=== PATIENT | male | born 1945 | race Caucasian/White ===

== ENCOUNTER 2022-01-12 15:06 | Inpatient (IN) | payer MEDICARE ==
--- NOTE | 2022-01-12 15:46 | ED ---
General Adult HPI - General Chief complaint: Skin/Abscess/Foreign Body Stated complaint: Rash Time Seen by Provider: 01/12/22 15:20 Source: patient Mode of arrival: wheelchair Limitations: no limitations - History of Present Illness Initial comments: 76-year-old male with no reported past medical history presents to the ED for a rash. Patient states that the rash has been present for several years however he has never had it evaluated. He does not see a physician. Describes it as an itchy rash all of his extremities as well as his torso. Patient is concerned for a parasitic infection. He cleans the skin using hydrogen peroxide daily. Patient is additionally concerned about a open sore on the back of his left ankle that has been there for a period of time. No fevers. No other alleviating, precipitating or modifying factors. - Related Data Previous Rx's Medication Instructions Recorded Collagenase [Santyl Ointment] 1 applic TOPICAL DAILY 30 Days #45 01/15/22 gm Doxycycline [Vibramycin] 100 mg PO BID 7 Days #14 capsule 01/15/22 Menthol-Zinc Oxide Oint 1 applic TOPICAL BID PRN 30 Days 01/15/22 [Calmoseptine Ointment] #45 gm hydrOXYzine HCL [Atarax] 25 mg PO TID PRN 30 Days #60 tab 01/15/22 predniSONE 50 mg PO DAILY 10 Days #10 tab 01/15/22 Allergies Allergy/AdvReac Type Severity Reaction Status Date / Time No Known Allergies Allergy Verified 01/12/22 20:41 Review of Systems ROS Statement: Those systems with pertinent positive or pertinent negative responses have been documented in the HPI. ROS Other: All systems not noted in ROS Statement are negative. Past Medical History Additional Past Medical History / Comment(s): psoriasis History of Any Multi-Drug Resistant Organisms: None Reported Past Surgical History: No Surgical Hx Reported Past Psychological History: No Psychological Hx Reported Smoking Status: Former smoker Past Alcohol Use History: Daily Past Drug Use History: None Reported - Past Family History Mother Family Medical History: Hypertension General Exam Limitations: no limitations General appearance: alert, in no apparent distress Head exam: Present: atraumatic, normocephalic, normal inspection Eye exam: Present: normal appearance, PERRL, EOMI. Absent: scleral icterus, conjunctival injection, periorbital swelling ENT exam: Present: normal exam, mucous membranes moist Neck exam: Present: normal inspection. Absent: tenderness, meningismus, lymphadenopathy Respiratory exam: Present: normal lung sounds bilaterally. Absent: respiratory distress, wheezes, rales, rhonchi, stridor Cardiovascular Exam: Present: normal rhythm, tachycardia, normal heart sounds. Absent: systolic murmur, diastolic murmur, rubs, gallop, clicks GI/Abdominal exam: Present: soft, normal bowel sounds. Absent: distended, tenderness, guarding, rebound, rigid Extremities exam: Present: normal inspection, full ROM, normal capillary refill. Absent: tenderness, pedal edema, joint swelling, calf tenderness Back exam: Present: normal inspection Neurological exam: Present: alert, oriented X3, CN II-XII intact Psychiatric exam: Present: normal affect, normal mood Skin exam: Present: warm, rash (Profound rash involving all surfaces of the patient's skin. The skin is cracked, peeling. There is open wound on the posterior aspect of the left calf measuring 8x4 cm. skin is weeping with serosanguineous drainage) Course Vital Signs 01/12/22 01/12/22 01/12/22 15:22 20:26 20:32 Temperature 97.8 F 98.6 F Pulse Rate 116 H 116 H Pulse Rate [ 111 H Supine Pulse Oximetery] Respiratory 18 18 20 Rate Blood Pressure 121/68 154/85 O2 Sat by Pulse 96 98 Oximetry Medical Decision Making - Medical Decision Making Upon arrival the patient is placed into room 26. Laboratory studies are conducted which demonstrate a white count of 14.7. Lactic normal. X-ray of the left ankle is performed which demonstrates no acute fracture. Large wound along the posterior aspect of the ankle joint with adjacent soft tissue swelling. No obvious soft tissue gas. Results are discussed with the patient. He is given Unasyn and Vanco. Recommended admission for wound and infectious disease consult. Patient agreed and was admitted to the floor in stable condition. Admitting physician is Dr. Lam - Lab Data Result diagrams: 01/14/22 07:03 01/15/22 05:27 Disposition Clinical Impression: Cellulitis, Open wound of left ankle Disposition: ADMITTED IP TO THIS HOSP Condition: Stable Is patient prescribed a controlled substance at d/c from ED?: No Decision to Admit Reason: Admit from EC Decision Date: 01/12/22 Decision Time: 19:52
--- NOTE | 2022-01-12 16:15 | XR ---
EXAMINATION TYPE: XR ankle complete LT DATE OF EXAM: 01/12/2022 COMPARISON: None available INDICATION: Osteomyelitis TECHNIQUE: Standard 3 views of the left ankle FINDINGS: Diffuse osteopenia. No definite acute fracture line identified. Suspected large wound along the poste rior aspect of the ankle joint with adjacent soft tissue thickening. No obvious soft tissue gas. [place] gated soft tissue calcification is seen at the posterior aspect of the ankle joint. No obvious bone destruction or gross signs of osteomyelitis however early osteomyelitis cannot be exc luded. Further bone scan/gallium scan assessment can be considered if clinically required. Posterior calcaneal enthesophytosis at the insertion of the Achilles tendon. Preserved ankle mortise with a smooth talar dome. No sizable ankle joint effusion. Arterial atherosclerotic calcifications. IMPRESSION: As above.
[2022-01-12] MEDS ORDERED: NALOXONE 0.4 MG/ML 1 ML VIAL IV PRN (19:53)
[2022-01-12] MEDS ORDERED: ACETAMINOPHEN TAB 325 MG TAB PO PRN (19:54)
[2022-01-12] MEDS ORDERED: VANCOMYCIN IV PER PHARMACY 1 EACH MISC MISCELLANE PRN ×2 (19:55→20:28)
[2022-01-12] MEDS ORDERED: AMPICILLIN-SULBACTAM 3 GM in SODIUM CHLORIDE 0.9% 100 ML IVPB STA (19:55)
[2022-01-12] MEDS ORDERED: VANCOMYCIN 1,500 MG in SODIUM CHLORIDE 0.9% 250 ML IVPB ONE (20:30)
[2022-01-12] MEDS: SODIUM CHLORIDE 0.9% 1,000 ML IV SCH (21:05)
[2022-01-12 21:17] LABS: Basophils # (A) 0.1 k/uL (0-0.2); Basophils % (A) 1 %; Eosinophils # (A) 1.8 k/uL (0-0.7); Eosinophils % (A) 12 %; HCT 40.5 % (39.0-53.0); HGB 12.6 gm/dL (13.0-17.5); Lymphocytes # (A) 1.9 k/uL (1.0-4.8); Lymphocytes % (A) 13 %; MCH 31.9 pg (25.0-35.0); MCV 102.9 fL (80.0-100.0); Macrocytosis Slight; Mean Platelet Volume 7.5; Monocytes # (A) 0.7 k/uL (0-1.0); Monocytes % (A) 5 %; Neutrophils # (A) 9.8 k/uL (1.3-7.7); Neutrophils % (A) 67 %; Platelet Count 516 k/uL (150-450); RBC 3.94 m/uL (4.30-5.90); RDW 12.8 % (11.5-15.5); WBC 14.7 k/uL (3.8-10.6)
[2022-01-12 21:26] LABS: ALT 16 U/L (4-49); AST 25 U/L (17-59); African American GFR (CKD) >90 (>60 ml/min/1.73 sqM); Albumin 3.6 g/dL (3.5-5.0); Alkaline Phosphatase 109 U/L (38-126); Anion Gap 9 mmol/L; Blood Urea Nitrogen 12 mg/dL (9-20); Calcium 9.2 mg/dL (8.4-10.2); Carbon Dioxide 26 mmol/L (22-30); Chloride 106 mmol/L (98-107); Glucose 105 mg/dL (74-99); Non-African American GFR(CKD) 85 (>60 ml/min/1.73 sqM); Potassium 4.5 mmol/L (3.5-5.1); Sodium 141 mmol/L (137-145); Total Bilirubin 0.6 mg/dL (0.2-1.3); Total Protein 7.2 g/dL (6.3-8.2)
--- NOTE | 2022-01-13 01:37 | P.HPIM ---
History of Present Illness H&P Date: 01/12/22 Patient is 76-year-old male with no known PMH, who has not seen a physician for 20 years presents to the emergency room with complaints of diffuse rash. The patient reports that she has gradually developed this rash over the past several years, which is exquisitely pruritic. He reports that the rash has now extended to his entire body and he also has developed an ulcer on the back of his left le g. Reports developing weeping sores throughout with small amounts of blood. The patient does not take any medications. Denies experiencing chest discomfort, shortness of breath, fever, chills, cough. Denies nausea, vomiting, abdominal pain, diarrhea. Left ankle x-ray revealed osteopenia with multiple soft tissue abnormalities noted without obvious signs of osteomyelitis. Laboratory evaluation was remarkable for leukocytosis of 14.7, MCV 102, lactic acid 1.4. Review of systems: Pertinent positives and negatives as discussed in HPI, a complete review of systems was performed and all other systems are negative. Physical examination: General: non toxic, no distress, appears at stated age, normal weight Derm: Diffuse salmon-colored thickened skin with silver plaques and excoriations throughout the entire body, left leg posterior large ulcer 10 cm with dry gangrene noted, warm, dry Head: atraumatic, normocephalic, symmetric Eyes: EOMI, no lid lag, anicteric sclera, pupils equal round reactive to light ENT: Nose and ears atraumatic, no thrush, no pharyngeal erythema Neck: No thyromegaly, no cervical lymphadenopathy, trachea midline, supple Mouth: no lip lesion, mucus membranes moist Cardiovascular: S1S2 reg, no murmur, positive posterior tibial pulse bilateral, no edema, capillary refill less than 2 seconds Lungs: CTA bilateral, no rhonchi, no rales , no accessory muscle use Abdominal: soft, nontender to palpation, no guarding, no appreciable organomegaly, normal bowel sounds Ext: no gross muscle atrophy, muscle strength 5 out of 5 in all 4 extremities grossly, no contractures, Neuro: CN II-XI grossly intact, light touch intact all 4 extremities, finger to nose within normal limits, Psych: Alert, oriented, appropriate affect Assessment/plan Diffuse severe psoriasis -Patient will need systemic therapy (methotrexate versus Biologics)in light of extensive disease -Rheumatology consulted Sepsis secondary to left lower extremity ulcer -Continue with Unasyn and vancomycin -Wound care and ID consulted -Follow up blood cultures -IV fluids DVT prophylaxis -Heparin subcu The patient is admitted with an anticipated greater than 2 midnight stay for evaluation of psoriasis CODE STATUS: Full Code Discussed with: Patient Anticipated discharge date: 01/[address]: Home Past Medical History Additional Past Medical History / Comment(s): psoriasis History of Any Multi-Drug Resistant Organisms: None Reported Past Surgical History: No Surgical Hx Reported Past Anesthesia/Blood Transfusion Reactions: No Reported Reaction Past Psychological History: No Psychological Hx Reported Smoking Status: Former smoker Past Alcohol Use History: Daily Past Drug Use History: None Reported - Past Family History Mother Family Medical History: Hypertension Medications and Allergies Home Medications Medication Instructions Recorded Confirmed Type No Known Home Medications 01/12/22 01/12/22 History Allergies Allergy/AdvReac Type Severity Reaction Status Date / Time No Known Allergies Allergy Verified 01/12/22 20:41 Physical Exam Vitals: Vital Signs Temp Pulse Pulse Resp BP BP Pulse Ox 01/12/22 23:00 98.8 F 111 H 20 158/83 100 01/12/22 20:26 98.6 F 116 H 18 154/85 98 01/12/22 15:22 97.8 F 116 H 18 121/68 96 Intake and Output 01/12/22 01/12/22 01/13/22 14:59 22:59 06:59 Other: Weight 68.039 kg Results CBC & Chem 7: 01/12/22 20:55 01/12/22 20:55 Labs: Abnormal Lab Results - Last 24 Hours (Table) 01/12/22 01/12/22 Range/Units 20:55 20:55 WBC 14.7 H (3.8-10.6) k/uL RBC 3.94 L (4.30-5.90) m/uL Hgb 12.6 L (13.0-17.5) gm/dL MCV 102.9 H (80.0-100.0) fL Plt Count 516 H (150-450) k/uL Neutrophils # 9.8 H (1.3-7.7) k/uL Eosinophils # 1.8 H (0-0.7) k/uL Glucose 105 H (74-99) mg/dL Thrombosis Risk Factor Assmnt - Choose All That Apply Any of the Below Risk Factors Present?: Yes Other Risk Factors: Yes Each Risk Factor Represents 3 Points: Age 75 years or older Thrombosis Risk Factor Assessment Total Risk Factor Score: 3 Thrombosis Risk Factor Assessment Level: Moderate Risk
[2022-01-13] MEDS: HEPARIN SODIUM,PORCINE/PF 5,000 UNIT/0.5 ML SYRINGE SQ SCH ×3 (08:54→22:31)
[2022-01-13 09:04] LABS: Basophils # (A) 0.15 X 10*3/uL (0.00-0.10); Eosinophils # (A) 2.52 X 10*3/uL (0.04-0.35); Eosinophils % (A) 17.5 %; HCT 33.6 % (39.6-50.0); HGB 10.4 g/dL (13.0-17.0); Immature Grans, Automated 0.6 %; Lymphocytes # (A) 2.32 X 10*3/uL (0.90-5.00); Lymphocytes % (A) 16.1 %; MCH 31.7 pg (27.0-32.0); MCV 102.4 fL (80.0-97.0); Mean Platelet Volume 9.4 fL (9.5-12.2); Monocytes # (A) 1.29 X 10*3/uL (0.20-1.00); NRBC Per 100 WBC 0 /100 WBCS (0.0-0.0); Neutrophils # (A) 8.01 X 10*3/uL (1.80-7.70); Neutrophils % (A) 55.8 %; Platelet Count 389 X 10*3/uL (140-440); RBC 3.28 X 10*6/uL (4.40-5.60); RDW 12.7 % (11.5-14.5); WBC 14.37 X 10*3/uL (4.50-10.00)
[2022-01-13 09:16] LABS: ALT 13 U/L (10-49); AST 14 U/L (14-35); African American GFR (CKD) 104.8 (60.0-200.0); Albumin/Globulin Ratio 1.15 (1.60-3.17); Alkaline Phosphatase 84 U/L (41-126); BUN/Creat Ratio 14.57 Ratio (12.00-20.00); Blood Urea Nitrogen 10.2 mg/dL (9.0-27.0); Calcium 8.7 mg/dL (8.7-10.3); Carbon Dioxide 22.5 mmol/L (20.0-27.5); Chloride 108 mmol/L (96-109); Globulin 2.6 g/dL (1.6-3.3); Glucose 91 mg/dL (70-110); Non-African American GFR(CKD) 90.4 (60.0-200.0); Potassium 4.3 mmol/L (3.5-5.5); Sodium 142 mmol/L (135-145); Total Bilirubin <0.15 mg/dL (0.30-1.20); Total Protein 5.6 g/dL (6.2-8.2)
[2022-01-13] MEDS: VANCOMYCIN 1,250 MG in SODIUM CHLORIDE 0.9% 250 ML IVPB SCH ×2 (10:44→22:25)
[2022-01-13] MEDS: SODIUM CHLORIDE 0.9% 1,000 ML IV SCH ×2 (10:46→17:37)
--- NOTE | 2022-01-13 10:47 | P.CONS ---
History of Present Illness - Reason for Consult Consult date: 01/13/22 wound care - History of Present Illness This is a 76-year-old patient with no known past medical history. He has not seen a physician in over 20 years. Patient states that he has an ulceration to the left lower leg that has been there for quite a few months. He is not sure how it started. He did have a rash to bilateral lower extremities that was pruritic. At this time patient has a non-pressure ulceration to the left Achilles that measures approximately 10 x 3 x 0.5 cm eschar is present, with tendon exposure, no granulation seen within the wound bed. The periwound shows excoriation and plaque. X-ray revealed osteopenia with multiple soft tissues abnormalities noted without obvious signs of osteomyelitis. Review Of Systems: Constitutional: No fever, no chills, no night sweats. No weight change. No weakness, fatigue or lethargy. No daytime sleepiness. Integumentary:reports wounds, no lesions. No rash or pruritus. No unusual bruising. No change in hair or nails. Physical exam: General Appearance: Alert, cooperative, no distress, appears stated age. Skin: See HPI all other Skin color, texture, tugor normal, no rashes or lesions. Neurologic: Alert oriented x3 Assessment: 1. Nonhealing ulceration with muscle exposure 2. Dry gangrene Plan: 1. 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 Patient is willing come to the wound care center for treatment. At this time we will start the patient on Santyl, saline moistened gauze, dry gauze, rolled gauze and secure with paper tape change daily. Thank you for the consultation any questions contact the wound care center DNP note has been reviewed and discussed with Dr. Bhakta and the impression and plan of care has been directed as dictated. Past Medical History Additional Past Medical History / Comment(s): psoriasis History of Any Multi-Drug Resistant Organisms: None Reported Past Surgical History: No Surgical Hx Reported Past Anesthesia/Blood Transfusion Reactions: No Reported Reaction Past Psychological History: No Psychological Hx Reported Smoking Status: Former smoker Past Alcohol Use History: Daily Past Drug Use History: None Reported - Past Family History Mother Family Medical History: Hypertension Medications and Allergies Home Medications Medication Instructions Recorded Confirmed Type No Known Home Medications 01/12/22 01/12/22 History Allergies Allergy/AdvReac Type Severity Reaction Status Date / Time No Known Allergies Allergy Verified 01/12/22 20:41 Physical Exam Vitals: Vital Signs Temp Pulse Pulse Pulse Resp BP BP 01/13/22 08:00 95 111 H 01/13/22 05:11 98.7 F 95 20 01/12/22 23:00 98.8 F 111 H 20 158/83 01/12/22 20:32 111 H 20 01/12/22 20:26 98.6 F 116 H 18 154/85 01/12/22 15:22 97.8 F 116 H 18 121/68 BP Pulse Ox 01/13/22 08:00 01/13/22 05:11 116/61 100 01/12/22 23:00 100 01/12/22 20:32 01/12/22 20:26 98 01/12/22 15:22 96 Intake and Output 01/12/22 01/13/22 01/13/22 22:59 06:59 14:59 Intake Total 500 Balance 500 Intake: Oral 500 Other: Weight 68.039 kg Results CBC & Chem 7: 01/13/22 06:01 01/13/22 06:01 Labs: Abnormal Lab Results - Last 24 Hours (Table) 01/12/22 01/12/22 01/13/22 Range/Units 20:55 20:55 06:01 WBC 14.7 H 14.37 H (3.8-10.6) k/uL RBC 3.94 L 3.28 L (4.30-5.90) m/uL Hgb 12.6 L 10.4 L (13.0-17.5) gm/dL Hct 33.6 L (39.6-50.0) % MCV 102.9 H 102.4 H (80.0-100.0) fL MCHC 31.0 L (32.0-37.0) g/dL Plt Count 516 H (150-450) k/uL MPV 9.4 L (9.5-12.2) fL Immature Gran # 0.08 H (0.00-0.04) X 10*3/uL Neutrophils # 9.8 H 8.01 H (1.3-7.7) k/uL Monocytes # 1.29 H (0.20-1.00) X 10*3/uL Eosinophils # 1.8 H 2.52 H (0-0.7) k/uL Basophils # 0.15 H (0.00-0.10) X 10*3/uL Glucose 105 H (74-99) mg/dL Total Bilirubin (0.30-1.20) mg/dL Total Protein (6.2-8.2) g/dL Albumin (3.8-4.9) g/dL Albumin/Globulin Ratio (1.60-3.17) g/dL 01/13/22 Range/Units 06:01 WBC (3.8-10.6) k/uL RBC (4.30-5.90) m/uL Hgb (13.0-17.5) gm/dL Hct (39.6-50.0) % MCV (80.0-100.0) fL MCHC (32.0-37.0) g/dL Plt Count (150-450) k/uL MPV (9.5-12.2) fL Immature Gran # (0.00-0.04) X 10*3/uL Neutrophils # (1.3-7.7) k/uL Monocytes # (0.20-1.00) X 10*3/uL Eosinophils # (0-0.7) k/uL Basophils # (0.00-0.10) X 10*3/uL Glucose (74-99) mg/dL Total Bilirubin <0.15 L (0.30-1.20) mg/dL Total Protein 5.6 L (6.2-8.2) g/dL Albumin 3.0 L (3.8-4.9) g/dL Albumin/Globulin Ratio 1.15 L (1.60-3.17) g/dL Assessment and Plan (1) 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
[2022-01-13] MEDS: COLLAGENASE 250 UNIT/GM OINTMENT 30 GM TUBE TOPICAL SCH (10:56)
--- NOTE | 2022-01-13 12:23 | P.CONS ---
History of Present Illness - Reason for Consult Consult date: 01/13/22 Rash - History of Present Illness This is a hospital consult for a 76-year-old male seen in emergency room on 01/03 with a chief complaint of rash. Patient stated that rash has been present for several years with no formal evaluation. He also is concerned about a open sore on the back of his left ankle. He is not currently on any medication and has no known medical problems. Labs were drawn in the emergency room which showed a elevated white blood cell count of 14.7. X-ray left ankle showed no evidence of fracture. He received intravenous antibiotics and was admitted with infectious disease consulted. Rheumatology was consulted by attending physician due to diffuse pruritic rash, questionable psoriasis. Patient is continued on intravenous antibiotics for sepsis secondary to LLE ulcer. Blood cultures are pending. Wound consult notes Claudette Vogt 01/12/22: Patient complains of ulcer to left lower leg for few months. He has a non-pressure ulceration to the left Achilles that does have tendon exposed. The periwound shows excoriation and plaque. X-ray revealed osteopenia with multiple soft tissue abnormalities but no obvious signs of osteomyelitis. Patient would benefit from a surgical debridement however patient cannot stay much longer due to being the primary caregiver for his . He is willing to come to the wound care center for treatment. We will start the patient on Santyl, saline moistened gauze, dry gauze, rolled gauze, and secured with paper tape. Patient will change this daily. Chief complaint: Patient complains of itching all over. He states " it feels like something is crawling inside my skin like a worm or parasite." He states that he has had itchy rash for over 1 decade. He denies any previous medical condition, no mental illness, no drug use. He states he has never seen a doctor before and takes no medication. The only thing that makes his rash better is itching it. He also uses lotion at times but does not find this helpful. Exam: Flexion contracture left fifth PIP, Dupuytren's contracture left third flexor tendon, no obvious synovitis, diffuse erythematous flaking of skin with multiple excoriations, lung sounds CTA, heart sounds RRR, AOx4, good ROM I spoke with Dr. Jang regarding patient case and rash findings are inconsiste nt with psoriasis. We do feel patient will need a biopsy performed by dermatology for diagnosis of rash and do recommend a referral to dermatology promptly. There is also no evidence of inflammatory arthritis. Autoimmune- specific Lab work is not necessary at this point in time. If dermatology does find psoriasis then he can be seen by our office outpatient for treatment as needed. Review of Systems Constitutional: Denies as per HPI, Denies anorexia, Denies chills, Denies chronic headaches, Denies chronic pain, Denies daytime sleepiness, Denies fatigue, Denies fever, Denies lethargy, Denies malaise, Denies night sweats, Denies poor appetite, Denies sweats, Denies weakness, Denies weight gain, Denies weight loss Ears, nose, mouth and throat: Denies as per HPI, Denies ant. neck pain, Denies bleeding gums, Denies dental pain, Denies dysphagia, Denies epistaxis, Denies headache, Denies hoarseness, Denies mouth pain, Denies nasal congestion, Denies nasal discharge, Denies neck fullness/pressure, Denies neck lump, Denies nose pain, Denies odynophagia, Denies post-nasal drip, Denies sinus pain, Denies sinus pressure, Denies swelling in mouth, Denies swelling in throat, Denies sore throat, Denies vertigo, Denies voice changes Cardiovascular: Denies as per HPI, Denies chest pain, Denies claudication, Denies decreased exercise tolerance, Denies dyspnea on exertion, Denies edema, Denies high blood pressure, Denies irregular heart beat, Denies leg edema, Denies lightheadedness, Denies orthopnea, Denies palpitations, Denies paroxysmal nocturnal dyspnea, Denies phlebitis, Denies rapid heart beat, Denies shortness of breath, Denies syncope Respiratory: Denies as per HPI, Denies congestion, Denies cough, Denies cough with sputum, Denies dyspnea, Denies excessive sputum, Denies hemoptysis, Denies home oxygen, Denies pain, Denies pain on inspiration, Denies pleurisy, Denies respiratory infections, Denies sleep apnea, Denies snoring, Denies wheezing Gastrointestinal: Denies as per HPI, Denies abdominal pain, Denies belching, Den ies bloating, Denies BRBPR, Denies change in bowel habits, Denies coffee ground emesis, Denies constipation, Denies diarrhea, Denies dyspepsia, Denies early satiety, Denies excessive gas, Denies heartburn, Denies hematemesis, Denies hematochezia, Denies indigestion, Denies jaundice, Denies lactose intolerance, Denies loss of appetite, Denies melena, Denies nausea, Denies vomiting Musculoskeletal: Denies as per HPI, Denies arm numbness/tingling, Denies atrophy, Denies fractures, Denies frequent falls, Denies gait dysfunction, Denies hot joints, Denies leg numbness/tingling, Denies limitation of motion, Denies loss of height, Denies low back pain, Denies morning stiffness, Denies muscle cramps, Denies muscle weakness, Denies myalgias, Denies neck pain, Denies neck stiffness, Denies prior amputations, Denies redness of joints, Denies shooting arm pain, Denies shooting leg pain Integumentary: Reports pruritus, Reports rash, Reports sores Neurological: Denies as per HPI, Denies aphasia, Denies ataxia, Denies balance difficulties, Denies burning pain, Denies change in mentation, Denies change in smell/taste, Denies change in speech, Denies confusion, Denies convulsions, Denies double vision, Denies gait dysfunction, Denies head injury, Denies headaches, Denies hearing difficulties, Denies lack of coordination, Denies loss of vision, Denies memory loss, Denies migraines, Denies motor disturbance, Denies numbness, Denies paralysis, Denies paresthesias, Denies seizures, Denies sensory deficit, Denies spasticity, Denies syncope, Denies tic, Denies tingling, Denies transient paralysis, Denies tremors, Denies vertigo, Denies weakness, Denies visual changes Psychiatric: Denies as per HPI, Denies anhedonia, Denies anxiety, Denies anxiety attacks, Denies change in appetite, Denies change in libido, Denies change in sleep habits, Denies confusion, Denies depression, Denies difficulty concentrating, Denies disorientation, Denies hallucinations, Denies hopelessness, Denies hypersomnia, Denies insomnia, Denies irritability, Denies memory loss, Denies mood swings, Denies paranoia, Denies sadness/tearfulness, Denies sleep disturbances, Denies suicidal ideation Endocrine: Denies as per HPI, Denies cold intolerance, Denies deepening of the voice, Denies excessive sweating, Denies excessive thirst, Denies fatigue, Denies flushing, Denies heat intolerance, Denies high blood sugars, Denies increase in ring/shoe/hat size, Denies low blood sugars, Denies nocturia, Denies palpitations, Denies polydipsia, Denies polyphagia, Denies polyuria, Denies proptosis, Denies recent glucocorticoid use, Denies thyroid mass, Denies weight change Allergic/Immunologic: Denies as per HPI, Denies allergic rhinitis, Denies anaphylaxis, Denies angioedema, Denies gluten intolerance, Denies persistent infections, Denies seasonal allergies, Denies urticaria, Denies wheezing Past Medical History Past Medical History: No Reported History Additional Past Medical History / Comment(s): psoriasis History of Any Multi-Drug Resistant Organisms: None Reported Past Surgical History: No Surgical Hx Reported Past Anesthesia/Blood Transfusion Reactions: No Reported Reaction Past Psychological History: No Psychological Hx Reported Smoking Status: Former smoker Past Alcohol Use History: Daily Past Drug Use History: None Reported - Past Family History Mother Family Medical History: Hypertension Medications and Allergies Home Medications Medication Instructions Recorded Confirmed Type No Known Home Medications 01/12/22 01/12/22 History Allergies Allergy/AdvReac Type Severity Reaction Status Date / Time No Known Allergies Allergy Verified 01/12/22 20:41 Physical Exam Vitals: Vital Signs Temp Pulse Pulse Pulse Resp BP BP 01/13/22 08:00 95 111 H 01/13/22 05:11 98.7 F 95 20 01/12/22 23:00 98.8 F 111 H 20 158/83 01/12/22 20:32 111 H 20 01/12/22 20:26 98.6 F 116 H 18 154/85 01/12/22 15:22 97.8 F 116 H 18 121/68 BP Pulse Ox 01/13/22 08:00 01/13/22 05:11 116/61 100 01/12/22 23:00 100 01/12/22 20:32 01/12/22 20:26 98 01/12/22 15:22 96 Intake and Output 05/10/22 05/11/22 05/11/22 22:59 06:59 14:59 Intake Total 500 Balance 500 Intake: Oral 500 Other: Weight 68.039 kg - Constitutional General appearance: average body habitus, cooperative - EENT Eyes: PERRLA ENT: hearing grossly normal - Neck Neck: normal ROM - Respiratory Respiratory: bilateral: CTA - Cardiovascular Rhythm: regular Heart sounds: normal: S1, S2 - Gastrointestinal General gastrointestinal: normal bowel sounds - Integumentary Integumentary: rash - Neurologic Neurologic: CNII-XII intact - Musculoskeletal Musculoskeletal: gait normal - Psychiatric Psychiatric: A&O x's 3 Results CBC & Chem 7: 01/13/22 06:01 01/13/22 06:01 Labs: Abnormal Lab Results - Last 24 Hours (Table) 01/12/22 01/12/22 01/13/22 Range/Units 20:55 20:55 06:01 WBC 14.7 H 14.37 H (3.8-10.6) k/uL RBC 3.94 L 3.28 L (4.30-5.90) m/uL Hgb 12.6 L 10.4 L (13.0-17.5) gm/dL Hct 33.6 L (39.6-50.0) % MCV 102.9 H 102.4 H (80.0-100.0) fL MCHC 31.0 L (32.0-37.0) g/dL Plt Count 516 H (150-450) k/uL MPV 9.4 L (9.5-12.2) fL Immature Gran # 0.08 H (0.00-0.04) X 10*3/uL Neutrophils # 9.8 H 8.01 H (1.3-7.7) k/uL Monocytes # 1.29 H (0.20-1.00) X 10*3/uL Eosinophils # 1.8 H 2.52 H (0-0.7) k/uL Basophils # 0.15 H (0.00-0.10) X 10*3/uL Glucose 105 H (74-99) mg/dL Total Bilirubin (0.30-1.20) mg/dL Total Protein (6.2-8.2) g/dL Albumin (3.8-4.9) g/dL Albumin/Globulin Ratio (1.60-3.17) g/dL 01/13/22 Range/Units 06:01 WBC (3.8-10.6) k/uL RBC (4.30-5.90) m/uL Hgb (13.0-17.5) gm/dL Hct (39.6-50.0) % MCV (80.0-100.0) fL MCHC (32.0-37.0) g/dL Plt Count (150-450) k/uL MPV (9.5-12.2) fL Immature Gran # (0.00-0.04) X 10*3/uL Neutrophils # (1.3-7.7) k/uL Monocytes # (0.20-1.00) X 10*3/uL Eosinophils # (0-0.7) k/uL Basophils # (0.00-0.10) X 10*3/uL Glucose (74-99) mg/dL Total Bilirubin <0.15 L (0.30-1.20) mg/dL Total Protein 5.6 L (6.2-8.2) g/dL Albumin 3.0 L (3.8-4.9) g/dL Albumin/Globulin Ratio 1.15 L (1.60-3.17) g/dL
[2022-01-13] MEDS ORDERED: diphenhydrAMINE 50 MG/ML 1 ML VIAL IVP PRN (14:51)
--- NOTE | 2022-01-13 15:00 | P.PN ---
Subjective Progress Note Date: 01/13/22 Hospital Course: Patient is 76-year-old male with no known PMH, who has not seen a physician for 20 years presents to the emergency room with complaints of diffuse rash. The patient reported he had gradually developed this rash over the past several years, approximately 10 years which is describes as being extremely pruritic. He reports that the rash has now extended to his entire body and he also has developed an ulcer on the back of his left leg. Reports that he scratches so much he has been developing weeping sores throughout with small amounts of blo od. The patient does not take any medications at home and reports he has his 's primary caregiver. Left ankle x-ray revealed osteopenia with multiple soft tissue abnormalities noted without obvious signs of osteomyelitis. Laboratory evaluation was remarkable for leukocytosis of 14.7, MCV 102, lactic acid 1.4. Patient was admitted under our services for diffuse severe psoriasis along with sepsis secondary to left lower extremity ulcer. He was started on IV antibiotics vancomycin and Rocephin and consultations were placed to rheumatology, infectious disease, and wound care. Physical examination: Patient was seen and fully evaluated at the bedside this morning. Patient reports significant itching that is uncontrolled at this time. Order placed for when necessary Benadryl. Patient remains on IV antibiotics with vancomycin and Unasyn at this time. Awaiting infectious disease and rheumatology recommendations. Ulceration left lower extremity distal posterior region is currently open to air with no drainage noted. General: non toxic, no distress, appears at stated age, normal weight thin build Derm: Diffuse excoriated salmon-colored thickened skin with silver plaques throughout the entire body, left leg posterior large ulcer 10 cm with dry gangrene noted and tendon exposure, warm, dry Head: atraumatic, normocephalic, symmetric Eyes: EOMI, no lid lag, anicteric sclera, pupils equal round reactive to light ENT: Nose and ears atraumatic, no thrush, no pharyngeal erythema Neck: No thyromegaly, no cervical lymphadenopathy, trachea midline, supple Mouth: no lip lesion, mucus membranes moist Cardiovascular: S1S2 reg, no murmur, positive posterior tibial pulse bilateral, no edema, capillary refill less than 2 seconds Lungs: CTA bilateral, no rhonchi, no rales , no accessory muscle use Abdominal: soft, nontender to palpation, no guarding, no appreciable organomegaly, normal bowel sounds Ext: no gross muscle atrophy, muscle strength 5 out of 5 in all 4 extremities grossly, no contractures, Neuro: CN II-XI grossly intact, light touch intact all 4 extremities, finger to nose within normal limits, Psych: Alert, oriented, appropriate affect Assessment and plan of care: Diffuse severe rash, appears consistent with severe case of psoriasis with excoriated salmon-colored thickened skin with silver plaques -Patient will likely need systemic therapy (methotrexate versus Biologics) in light of extensive disease -Rheumatology consulted -Benadryl to be administered as needed for severe uncontrolled itching Sepsis secondary to left lower extremity ulcer -Continue with Unasyn and vancomycin -Wound care and ID consulted -Follow up blood cultures -IV fluids CODE STATUS: Full Code DVT prophylaxis: Heparin Discussed with: Patient and RN Anticipated discharge date: Clinical course to determine Anticipated discharge place: Home with home care I reviewed the documentation as provided by the ALEXANDRE above, who is the original author of this note. I agree with the documented assessment and plan, with the following changes: none Objective - Vital Signs Vital signs: Vital Signs Temp 98.7 F 01/13/22 05:11 Pulse 95 01/13/22 05:11 Resp 20 01/13/22 05:11 BP 116/61 01/13/22 05:11 Pulse Ox 100 01/13/22 05:11 Intake & Output 01/12/22 01/13/22 01/13/22 18:59 06:59 18:59 Intake Total 500 Balance 500 Weight 68.039 kg Intake: Oral 500 - Labs CBC & Chem 7: 01/13/22 06:01 01/13/22 06:01 Labs: Abnormal Lab Results - Last 24 Hours (Table) 01/12/22 01/12/22 Range/Units 20:55 20:55 WBC 14.7 H (3.8-10.6) k/uL RBC 3.94 L (4.30-5.90) m/uL Hgb 12.6 L (13.0-17.5) gm/dL MCV 102.9 H (80.0-100.0) fL Plt Count 516 H (150-450) k/uL Neutrophils # 9.8 H (1.3-7.7) k/uL Eosinophils # 1.8 H (0-0.7) k/uL Glucose 105 H (74-99) mg/dL
--- NOTE | 2022-01-13 21:32 | P.CONS ---
History of Present Illness - Reason for Consult Consult date: 01/13/22 Bilateral lower extremity cellulitis Requesting physician: Evy Siddiqui - Chief Complaint Generalized itching and rash x months - History of Present Illness Patient is a 76-year-old male presenting to the hospital for evaluation of extensive rash which apparently the patient has for more than 10 years however mention has been getting worse over the last few months patient is not on any medications and has not seek any treatment for it until yesterday afternoon patient complaining of rash to upper and lower extremities mostly generalized with itching and some burning pain patient also have a necrotic open wound to the left posterior calcaneus area which apparently has been going on for couple of weeks to months patient denies having history of any trauma and mention it has opened up spontaneously head the patient has been the cleaning it with hydrogen peroxide, on presentation to the hospital patient was afebrile and no fever have recorded subsequently patient vital 14.7 with a left shift creatinine was normal liver enzymes are normal patient did have x-rays of the ankle did not show any bony changes, the patient has been started on vancomycin was admitted to the hospital infectious disease was consulted for further management Review of Systems Positive point has been mentioned in the HPI rest of the systems are negative Past Medical History Additional Past Medical History / Comment(s): psoriasis History of Any Multi-Drug Resistant Organisms: None Reported Past Surgical History: No Surgical Hx Reported Past Anesthesia/Blood Transfusion Reactions: No Reported Reaction Past Psychological History: No Psychological Hx Reported Smoking Status: Former smoker Past Alcohol Use History: Daily Past Drug Use History: None Reported - Past Family History Mother Family Medical History: Hypertension Medications and Allergies Home Medications Medication Instructions Recorded Confirmed Type Collagenase [Santyl Ointment] 1 applic TOPICAL DAILY 30 Days #45 01/15/22 Rx gm Doxycycline [Vibramycin] 100 mg PO BID 7 Days #14 capsule 01/15/22 Rx Menthol-Zinc Oxide Oint 1 applic TOPICAL BID PRN 30 Days 01/15/22 Rx [Calmoseptine Ointment] #45 gm hydrOXYzine HCL [Atarax] 25 mg PO TID PRN 30 Days #60 tab 01/15/22 Rx predniSONE 50 mg PO DAILY 10 Days #10 tab 01/15/22 Rx Allergies Allergy/AdvReac Type Severity Reaction Status Date / Time No Known Allergies Allergy Verified 01/12/22 20:41 Physical Exam Vitals: Vital Signs Temp Pulse Pulse Pulse Resp BP BP 01/13/22 08:00 95 111 H 01/13/22 05:11 98.7 F 95 20 01/12/22 23:00 98.8 F 111 H 20 158/83 01/12/22 20:32 111 H 20 01/12/22 20:26 98.6 F 116 H 18 154/85 01/12/22 15:22 97.8 F 116 H 18 121/68 BP Pulse Ox 01/13/22 08:00 01/13/22 05:11 116/61 100 01/12/22 23:00 100 01/12/22 20:32 01/12/22 20:26 98 01/12/22 15:22 96 Intake and Output 01/12/22 01/13/22 01/13/22 22:59 06:59 14:59 Intake Total 500 Balance 500 Intake: Oral 500 Other: Weight 68.039 kg GENERAL DESCRIPTION: Elderly male lying in bed, no distress. No tachypnea or accessory muscle of respiration use. HEENT: Shows Pallor , no scleral icterus. Oral mucous membrane is dry. No pharyngeal erythema or thrush NECK: Trachea central, no thyromegaly. LUNGS: Unlabored breathing. Clear to auscultation anteriorly. No wheeze or crackle. HEART: S1, S2, regular rate and rhythm. No loud murmur ABDOMEN: Soft, no tenderness , guarding or rigidity, no organomegaly EXTREMITIES: No edema of feet. SKIN: Generalized dry scaly rash, with necrotic wound to the left ankle area no surrounding redness or any drainage NEUROLOGICAL: The patient is awake, alert, oriented x3, mood and affect normal. Results CBC & Chem 7: 01/14/22 07:03 01/15/22 05:27 Labs: Abnormal Lab Results - Last 24 Hours (Table) 01/12/22 01/12/22 01/13/22 Range/Units 20:55 20:55 06:01 WBC 14.7 H 14.37 H (3.8-10.6) k/uL RBC 3.94 L 3.28 L (4.30-5.90) m/uL Hgb 12.6 L 10.4 L (13.0-17.5) gm/dL Hct 33.6 L (39.6-50.0) % MCV 102.9 H 102.4 H (80.0-100.0) fL MCHC 31.0 L (32.0-37.0) g/dL Plt Count 516 H (150-450) k/uL MPV 9.4 L (9.5-12.2) fL Immature Gran # 0.08 H (0.00-0.04) X 10*3/uL Neutrophils # 9.8 H 8.01 H (1.3-7.7) k/uL Monocytes # 1.29 H (0.20-1.00) X 10*3/uL Eosinophils # 1.8 H 2.52 H (0-0.7) k/uL Basophils # 0.15 H (0.00-0.10) X 10*3/uL Glucose 105 H (74-99) mg/dL Total Bilirubin (0.30-1.20) mg/dL Total Protein (6.2-8.2) g/dL Albumin (3.8-4.9) g/dL Albumin/Globulin Ratio (1.60-3.17) g/dL /07/27 Range/Units 06:01 WBC (3.8-10.6) k/uL RBC (4.30-5.90) m/uL Hgb (13.0-17.5) gm/dL Hct (39.6-50.0) % MCV (80.0-100.0) fL MCHC (32.0-37.0) g/dL Plt Count (150-450) k/uL MPV (9.5-12.2) fL Immature Gran # (0.00-0.04) X 10*3/uL Neutrophils # (1.3-7.7) k/uL Monocytes # (0.20-1.00) X 10*3/uL Eosinophils # (0-0.7) k/uL Basophils # (0.00-0.10) X 10*3/uL Glucose (74-99) mg/dL Total Bilirubin <0.15 L (0.30-1.20) mg/dL Total Protein 5.6 L (6.2-8.2) g/dL Albumin 3.0 L (3.8-4.9) g/dL Albumin/Globulin Ratio 1.15 L (1.60-3.17) g/dL Assessment and Plan (1) Rash Status: Acute Code(s): R21 - RASH AND OTHER NONSPECIFIC SKIN ERUPTION SNOMED Code(s): 302587089 Plan: 1patient with generalized rash pruritic with a question of primary skin condition or rheumatological disorder patient benefit from skin biopsy and r heumatological work-up to rule out etiology and appropriate treatment clinically not behaving as a cellulitis with generalized and itchy rash. 2patient with a nonhealing wound to the left posterior ankle area with a tendo calcaneum exposed which seem to be necrotic patient will benefit from vascular surgery evaluation this was discussed with the admitting team. 3May continue with empiric vancomycin while waiting for the work-up to be completed. We will follow on clinical condition and cultures to further adjust medication if needed Thank you for this consultation will follow this patient along with you Time with Patient: Greater than 30
[2022-01-14] MEDS ORDERED: diphenhydrAMINE 25 MG CAP PO ONE (00:45)
[2022-01-14] MEDS: SODIUM CHLORIDE 0.9% 1,000 ML IV SCH ×3 (07:39→16:13)
[2022-01-14 07:57] LABS: ALT 13 U/L (4-49); AST 21 U/L (17-59); African American GFR (CKD) >90 (>60 ml/min/1.73 sqM); Albumin 2.7 g/dL (3.5-5.0); Alkaline Phosphatase 82 U/L (38-126); Anion Gap 5 mmol/L; Blood Urea Nitrogen 8 mg/dL (9-20); Calcium 8.3 mg/dL (8.4-10.2); Carbon Dioxide 25 mmol/L (22-30); Chloride 109 mmol/L (98-107); Globulin 2.8 g/dL; Glucose 87 mg/dL (74-99); Non-African American GFR(CKD) 89 (>60 ml/min/1.73 sqM); Potassium 3.9 mmol/L (3.5-5.1); Sodium 139 mmol/L (137-145); Total Bilirubin 0.4 mg/dL (0.2-1.3); Total Protein 5.5 g/dL (6.3-8.2)
[2022-01-14 08:24] LABS: C Reactive Protein 4.6 mg/dL (<1.0)
[2022-01-14 09:17] LABS: Basophils # (A) 0.12 X 10*3/uL (0.00-0.10); Eosinophils # (A) 2.38 X 10*3/uL (0.04-0.35); Eosinophils % (A) 19.1 %; HCT 32.9 % (39.6-50.0); HGB 10.1 g/dL (13.0-17.0); Immature Grans, Automated 0.3 %; Lymphocytes # (A) 2.26 X 10*3/uL (0.90-5.00); Lymphocytes % (A) 18.1 %; MCH 31.1 pg (27.0-32.0); MCHC 30.7 g/dL (32.0-37.0); MCV 101.2 fL (80.0-97.0); Mean Platelet Volume 9.5 fL (9.5-12.2); Monocytes # (A) 1.05 X 10*3/uL (0.20-1.00); Monocytes % (A) 8.4 %; NRBC Per 100 WBC 0 /100 WBCS (0.0-0.0); Neutrophils # (A) 6.62 X 10*3/uL (1.80-7.70); Neutrophils % (A) 53.1 %; Platelet Count 390 X 10*3/uL (140-440); RBC 3.25 X 10*6/uL (4.40-5.60); RDW 12.5 % (11.5-14.5); WBC 12.47 X 10*3/uL (4.50-10.00)
[2022-01-14] MEDS: HEPARIN SODIUM,PORCINE/PF 5,000 UNIT/0.5 ML SYRINGE SQ SCH ×2 (09:45→16:13)
[2022-01-14] MEDS: VANCOMYCIN 1,250 MG in SODIUM CHLORIDE 0.9% 250 ML IVPB SCH ×2 (09:45→19:41)
[2022-01-14] MEDS: COLLAGENASE 250 UNIT/GM OINTMENT 30 GM TUBE TOPICAL SCH (09:54)
--- NOTE | 2022-01-14 09:55 | P.GSCN ---
History of Present Illness Consult date: 01/14/22 Reason for Consult: Nonhealing lower extremity wound Requesting physician: Leonid Wilson History of present illness: This is a 76-year-old male who presented to the emergency department 3 days ago with complaints of a pruritic rash and nonhealing wound to the left lower extremity. Patient has no known past medical history. He has not seen a physician in over 20 years. He states he's had pruritic rash which is all over his body for several years. Left lower extremity wound for several months. Again he has not seen any doctors for these complaints. Review of Systems A 14 point review systems was completed all pertinent positives and negatives as stated in the HPI. Past Medical History Past Medical History: No Reported History Additional Past Medical History / Comment(s): psoriasis History of Any Multi-Drug Resistant Organisms: None Reported Past Surgical History: No Surgical Hx Reported Past Anesthesia/Blood Transfusion Reactions: No Reported Reaction Past Psychological History: No Psychological Hx Reported Smoking Status: Former smoker Past Alcohol Use History: Daily Past Drug Use History: None Reported - Past Family History Mother Family Medical History: Hypertension Medications and Allergies Home Medications Medication Instructions Recorded Confirmed Type No Known Home Medications 01/12/22 01/12/22 History Allergies Allergy/AdvReac Type Severity Reaction Status Date / Time No Known Allergies Allergy Verified 01/12/22 20:41 Surgical - Exam Vital Signs Temp Pulse Resp BP Pulse Ox 97.8 F 116 H 18 121/68 96 01/12/22 15:22 01/12/22 15:22 01/12/22 15:22 01/12/22 15:22 01/12/22 15:22 General appearance: The patient is alert, oriented, appears in no acute distress. HET: Head is normocephalic and atraumatic. Pupils are equal and reactive. Neck: Supple without lymphadenopathy. Trachea midline. No audible carotid bruit. Heart: S1 S2. Regular rate and rhythm. Lungs: Clear to auscultation bilaterally. Abdomen: Soft, nontender, nondistended. Skin: Pruritic rash on bilateral upper and lower extremities and abdomen. Upper and lower extremities with leathery, dry, flaky skin. Extremities: Bilateral lower extremities with scaly A skin that is flaking. He has palpable bilateral femoral and popliteal pulses. Good capillary refill. Left lower extremity wound over the Achilles with eschar and tendon exposure. Bilateral posterior tibialis and dorsalis pedis Doppler signals. Neurological: No focal deficits. Strength and sensation are grossly intact. Results - Labs 01/14/22 07:03 01/14/22 07:03 Abnormal Lab Results - Last 24 Hours (Table) 01/13/22 01/13/22 Range/Units 06:01 06:01 WBC 14.37 H (4.50-10.00) X 10*3/uL RBC 3.28 L (4.40-5.60) X 10*6/uL Hgb 10.4 L (13.0-17.0) g/dL Hct 33.6 L (39.6-50.0) % MCV 102.4 H (80.0-97.0) fL MCHC 31.0 L (32.0-37.0) g/dL MPV 9.4 L (9.5-12.2) fL Immature Gran # 0.08 H (0.00-0.04) X 10*3/uL Neutrophils # 8.01 H (1.80-7.70) X 10*3/uL Monocytes # 1.29 H (0.20-1.00) X 10*3/uL Eosinophils # 2.52 H (0.04-0.35) X 10*3/uL Basophils # 0.15 H (0.00-0.10) X 10*3/uL Total Bilirubin <0.15 L (0.30-1.20) mg/dL Total Protein 5.6 L (6.2-8.2) g/dL Albumin 3.0 L (3.8-4.9) g/dL Albumin/Globulin Ratio 1.15 L (1.60-3.17) g/dL Microbiology - Last 24 Hours (Table) 01/12/22 21:00 Blood Culture - Preliminary Blood No Growth after 24 hours 01/12/22 20:45 Blood Culture - Preliminary Blood No Growth after 24 hours Diabetes panel 01/13/22 Range/Units 06:01 Sodium 142 (135-145) mmol/L Potassium 4.3 (3.5-5.5) mmol/L Chloride 108 (96-109) mmol/L Carbon Dioxide 22.5 (20.0-27.5) mmol/L BUN 10.2 (9.0-27.0) mg/dL Creatinine 0.7 (0.6-1.5) mg/dL Glucose 91 (70-110) mg/dL Calcium 8.7 (8.7-10.3) mg/dL AST 14 (14-35) U/L ALT 13 (10-49) U/L Alkaline Phosphatase 84 (41-126) U/L Total Protein 5.6 L (6.2-8.2) g/dL Albumin 3.0 L (3.8-4.9) g/dL Calcium panel 01/13/22 Range/Units 06:01 Calcium 8.7 (8.7-10.3) mg/dL Albumin 3.0 L (3.8-4.9) g/dL Pituitary panel 01/13/22 Range/Units 06:01 Sodium 142 (135-145) mmol/L Potassium 4.3 (3.5-5.5) mmol/L Chloride 108 (96-109) mmol/L Carbon Dioxide 22.5 (20.0-27.5) mmol/L BUN 10.2 (9.0-27.0) mg/dL Creatinine 0.7 (0.6-1.5) mg/dL Glucose 91 (70-110) mg/dL Calcium 8.7 (8.7-10.3) mg/dL Adrenal panel 01/13/22 Range/Units 06:01 Sodium 142 (135-145) mmol/L Potassium 4.3 (3.5-5.5) mmol/L Chloride 108 (96-109) mmol/L Carbon Dioxide 22.5 (20.0-27.5) mmol/L BUN 10.2 (9.0-27.0) mg/dL Creatinine 0.7 (0.6-1.5) mg/dL Glucose 91 (70-110) mg/dL Calcium 8.7 (8.7-10.3) mg/dL Total Bilirubin <0.15 L (0.30-1.20) mg/dL AST 14 (14-35) U/L ALT 13 (10-49) U/L Alkaline Phosphatase 84 (41-126) U/L Total Protein 5.6 L (6.2-8.2) g/dL Albumin 3.0 L (3.8-4.9) g/dL - Imaging Comments: Left Ankle x-ray reports diffuse osteopenia, no definite acute fracture line identified. Suspect large wound along posterior aspect of ankle joint with adjacent soft tissue thickening. No obvious soft tissue gas. No obvious bone destruction or gross signs of osteomyelitis Assessment and Plan Assessment: 1. Left lower extremity nonhealing nonhealing wound 2. 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 It was discussed with him that we recommend lower extremity arterial Doppler and CT abdomen and pelvis with runoff of lower extremities however this can be done as an outpatient. Agree with local wound care. Patient may benefit as well from formal debridement, however again this is not urgent. Outpatient follow-up for a pruritic rash with dermatology. Thank you for this consultation, we will continue to follow. The impression and plan of care has been dictated as directed. Dr. Reis I performed a history and examination of this patient, discussed the same with the dictator. I agree with the dictator's note ,documented as a scribe. Any additional findings or plans will be noted.
[2022-01-14 12:03] LABS: Erythrocyte Sedimentation Rate 38 mm/Hr (0-20)
[2022-01-14] MEDS ORDERED: MENTHOL-ZINC OXIDE OINT 113 GM TUBE TOPICAL PRN (14:53)
--- NOTE | 2022-01-14 16:18 | P.PN ---
Subjective Progress Note Date: 01/14/22 Hospital Course: Patient is 76-year-old male with no known PMH, who has not seen a physician for 20 years presents to the emergency room with complaints of diffuse rash. The patient reported he had gradually developed this rash over the past several years, approximately 10 years which is describes as being extremely pruritic. He reports that the rash has now extended to his entire body and he also has developed an ulcer on the back of his left leg. Reports that he scratches so much he has been developing weeping sores throughout with small amounts of blo od. The patient does not take any medications at home and reports he has his 's primary caregiver. Left ankle x-ray revealed osteopenia with multiple soft tissue abnormalities noted without obvious signs of osteomyelitis. Laboratory evaluation was remarkable for leukocytosis of 14.7, MCV 102, lactic acid 1.4. Patient was admitted under our services for diffuse severe psoriasis along with sepsis secondary to left lower extremity ulcer. He was started on IV antibiotics vancomycin and Rocephin and consultations were placed to rheumatology, infectious disease, and wound care. Physical examination: Patient was seen and fully evaluated at the bedside this morning. Patient reports his itching remains uncontrolled but otherwise denies having any complaints or concerns at this time. Patient to be seen by vascular surgery and dermatology as recommended by infectious disease. At this time we will continue with IV antibiotic vancomycin. Vascular surgery completing CTA abdomen and aorta with runoff and bilateral lower extremity arterial Dopplers. General: non toxic, no distress, appears at stated age, normal weight thin build Derm: Diffuse excoriated salmon-colored thickened skin with silver plaques throughout the entire body, left leg posterior large ulcer 10 cm with dry gangrene noted and tendon exposure, warm, dry Head: atraumatic, normocephalic, symmetric Eyes: EOMI, no lid lag, anicteric sclera, pupils equal round reactive to light ENT: Nose and ears atraumatic, no thrush, no pharyngeal erythema Neck: No thyromegaly, no cervical lymphadenopathy, trachea midline, supple Mouth: no lip lesion, mucus membranes moist Cardiovascular: S1S2 reg, no murmur, positive posterior tibial pulse bilateral, no edema, capillary refill less than 2 seconds Lungs: CTA bilateral, no rhonchi, no rales , no accessory muscle use Abdominal: soft, nontender to palpation, no guarding, no appreciable organomegaly, normal bowel sounds Ext: no gross muscle atrophy, muscle strength 5 out of 5 in all 4 extremities grossly, no contractures, Neuro: CN II-XI grossly intact, light touch intact all 4 extremities, finger to nose within normal limits, Psych: Alert, oriented, appropriate affect Assessment and plan of care: Diffuse severe rash, appears consistent with severe case of psoriasis with exc oriated salmon-colored thickened skin with silver plaques -Patient will likely need systemic therapy (methotrexate versus Biologics) in light of extensive disease -Rheumatology consulted -Benadryl to be administered as needed for severe uncontrolled itching Sepsis secondary to left lower extremity ulcer -Continue with IV antibiotic: vancomycin -Wound care following -Infectious disease following -Follow up blood cultures, showing no growth after 24 hours -IV fluids completed and -Vascular disease consulted for evaluation of wound with possible debridement as well as skin biopsy secondary to severity of rash. CODE STATUS: Full Code DVT prophylaxis: Heparin Discussed with: Patient and RN Anticipated discharge date: Clinical course to determine Anticipated discharge place: Home with home care I reviewed the documentation as provided by the ALEXANDRE above, who is the original author of this note. I agree with the documented assessment and plan, with the following changes: none Objective - Vital Signs Vital signs: Vital Signs Temp 97.8 F 01/14/22 05:33 Pulse 88 01/14/22 05:33 Resp 18 01/14/22 05:33 BP 130/65 01/14/22 05:33 Pulse Ox 96 01/14/22 05:33 Intake & Output 01/13/22 01/14/22 01/14/22 18:59 06:59 18:59 Intake Total 1550 Balance 1550 Intake: Intake, IV Titration 1550 Amount Sodium Chloride 0.9% 1, 1300 000 ml @ 130 mls/hr IV . Q7H42M [facility] Rx#:[id number] Vancomycin 1,250 mg In 250 Sodium Chloride 0.9% 250 ml @ 125 mls/hr IVPB Q12H [facility] Rx#:[id number] Other: Voiding Method Toilet - Labs CBC & Chem 7: 01/14/22 07:03 01/14/22 07:03 Labs: Abnormal Lab Results - Last 24 Hours (Table) 01/14/22 01/14/22 Range/Units 07:03 07:03 WBC 12.47 H (4.50-10.00) X 10*3/uL RBC 3.25 L (4.40-5.60) X 10*6/uL Hgb 10.1 L (13.0-17.0) g/dL Hct 32.9 L (39.6-50.0) % MCV 101.2 H (80.0-97.0) fL MCHC 30.7 L (32.0-37.0) g/dL Monocytes # 1.05 H (0.20-1.00) X 10*3/uL Eosinophils # 2.38 H (0.04-0.35) X 10*3/uL Basophils # 0.12 H (0.00-0.10) X 10*3/uL ESR 38 H (0-20) mm/Hr Chloride 109 H (98-107) mmol/L BUN 8 L (9-20) mg/dL Calcium 8.3 L (8.4-10.2) mg/dL C-Reactive Protein 4.6 H (<1.0) mg/dL Total Protein 5.5 L (6.3-8.2) g/dL Albumin 2.7 L (3.5-5.0) g/dL Microbiology - Last 24 Hours (Table) 01/12/22 21:00 Blood Culture - Preliminary Blood No Growth after 24 hours 01/12/22 20:45 Blood Culture - Preliminary Blood No Growth after 24 hours
--- NOTE | 2022-01-14 20:08 | CT ---
EXAMINATION TYPE: CT angio abd aorta w/Runoff DATE OF EXAM: 01/14/2022 INDICATION: non healing left lower extremity wound CT DLP: 1214 mGy.cm Automated Exposure Control for Dose Reduction was Utilized. TECHNIQUE AND CONTRAST: CT scan of the abdomen, pelvis and lower extremities is performed with IV Contrast, CTA protocol, pat ient injected with 100ml mL of Isovue 370. MIP and 3-D reconstruction images were generated on an [employer] workstation and reviewed. COMPARISON: Unavailable FINDINGS: Suboptimal CTA with artifactual images. Scattered arterial atherosclerotic calcification and tortuosi ty. Atherosclerotic abdominal aorta without significant stenosis or occlusion. Atherosclerotic celiac trunk and superior mesenteric artery without significant stenosis or occlusion. Severe stenosis of t he origin of the inferior mesenteric artery yet patent distally. Single renal artery supplying each k idney demonstrating atherosclerotic changes and suspected focal stenosis of the origins yet patent di stally. Extensive atherosclerotic calcification and atheromatous plaques of the common, internal and external iliac arteries without significant stenosis or occlusion. Atherosclerotic changes of the common femoral arteries, deep femoral arteries and superficial femoral arteries without significant stenosis or occlusion. Focal moderate to severe stenosis of the right s uperficial femoral artery at the adductor canal yet patent distally. Atherosclerotic right popliteal artery with segment of stenosis and reduced enhancement yet still patent distally. Severe atheroscler otic changes of the left popliteal artery with segments of markedly reduced enhancement/complete occl usion yet patent distally likely via collaterals. Suboptimal assessment of the arteries in the legs d ue to venous contamination. With this limitation, the anterior tibial and peroneal arteries are opaci fied down to the ankle with segments of atherosclerotic changes and focal stenosis. Extensive atheros clerotic calcification of the posterior tibial arteries with suspected segments of complete occlusion . Grossly unremarkable liver, gallbladder, spleen, pancreas, adrenals and kidneys. Unremarkable urinary bladder, prostate and seminal vesicles. Unremarkable stomach, duodenum and small bowel. Fecal loadin g of the colon with scattered uncomplicated colonic diverticulosis. No sizable ascites. Enlarged bila teral inguinal and to a lesser extent the external iliac lymph nodes, nonspecific. Recommend clinical correlation and clinical follow-up. Follow-up by CT scan can be considered if clinically required. U nremarkable lung bases. No gross aggressive bone lesion. Bilateral leg soft tissue thickening, subcut aneous fat stranding and reactive fluid, possibly due to ischemia. Focal soft tissue thickening/wound is seen at the posterior aspect of the left lower leg. A small abscess at that location cannot be ex cluded. IMPRESSION: Extensive arterial atherosclerotic calcifications most evident involving the leg arteries as detailed above, please correlate clinically. Other incidental findings as described above.
[2022-01-14 20:26] VITALS: RESP 16
--- NOTE | 2022-01-14 21:59 | P.PN ---
Subjective Progress Note Date: 01/14/22 Principal diagnosis: Rash and question of cellulitis Patient is a 76-year-old male who has not seen a physician in 20 years presented to hospital with generalized pruritic rash and also have a nonhealing wound to the left ankle with the tendocalcanium exposed and necrotic changes. On today's evaluation that is 01/14/2022, the patient denies having any fever or any chills still complaining of itching rash to upper and lower extremity with a nonhealing wound to the left ankle area, denies any worsening pain to the wound area or any drainage no chest pain shortness of breath or cough no abdominal pain or diarrhea Objective - Vital Signs Vital signs: Vital Signs Temp 97.8 F 01/14/22 05:33 Pulse 88 01/14/22 05:33 Resp 18 01/14/22 05:33 BP 130/65 01/14/22 05:33 Pulse Ox 96 01/14/22 05:33 Intake & Output 01/13/22 01/14/22 01/14/22 18:59 06:59 18:59 Intake Total 1550 Balance 1550 Intake: Intake, IV Titration 1550 Amount Sodium Chloride 0.9% 1, 1300 000 ml @ 130 mls/hr IV . Q7H42M [facility] Rx#:[id number] Vancomycin 1,250 mg In 250 Sodium Chloride 0.9% 250 ml @ 125 mls/hr IVPB Q12H [facility] Rx#:[id number] Other: Voiding Method Toilet - Exam GENERAL DESCRIPTION: An elderly male lying in bed in no distress RESPIRATORY SYSTEM: Unlabored breathing , decreased breath sounds at bases HEART: S1 S2 regular rate and rhythm , ABDOMEN: Soft , no tenderness EXTREMITIES: Left posterior ankle with the tendon exposed and necrotic changes SKIN: Generalized rash with dry scaly skin upper and lower extremity - Labs CBC & Chem 7: 01/14/22 07:03 01/14/22 07:03 Labs: Abnormal Lab Results - Last 24 Hours (Table) 01/14/22 01/14/22 Range/Units 07:03 07:03 WBC 12.47 H (4.50-10.00) X 10*3/uL RBC 3.25 L (4.40-5.60) X 10*6/uL Hgb 10.1 L (13.0-17.0) g/dL Hct 32.9 L (39.6-50.0) % MCV 101.2 H (80.0-97.0) fL MCHC 30.7 L (32.0-37.0) g/dL Monocytes # 1.05 H (0.20-1.00) X 10*3/uL Eosinophils # 2.38 H (0.04-0.35) X 10*3/uL Basophils # 0.12 H (0.00-0.10) X 10*3/uL ESR 38 H (0-20) mm/Hr Chloride 109 H (98-107) mmol/L BUN 8 L (9-20) mg/dL Calcium 8.3 L (8.4-10.2) mg/dL C-Reactive Protein 4.6 H (<1.0) mg/dL Total Protein 5.5 L (6.3-8.2) g/dL Albumin 2.7 L (3.5-5.0) g/dL Microbiology - Last 24 Hours (Table) 01/12/22 21:00 Blood Culture - Preliminary Blood No Growth after 24 hours 01/12/22 20:45 Blood Culture - Preliminary Blood No Growth after 24 hours Assessment and Plan (1) Rash Current Visit: Yes Status: Acute Code(s): R21 - RASH AND OTHER NONSPECIFIC SKIN ERUPTION SNOMED Code(s): 217989550 (2) Open wound of left ankle Current Visit: Yes Status: Acute Code(s): S91.002A - UNSPECIFIED OPEN WOUND, LEFT ANKLE, INITIAL ENCOUNTER SNOMED Code(s): 53706943279700178 Plan: 1patient with generalized rash pruritic with a question of primary skin con dition or rheumatological disorder patient benefit from skin biopsy and rheumatological work-up to rule out etiology and appropriate treatment clinically not behaving as a cellulitis with generalized and itchy rash. Patient will benefit from a skin biopsy to determine the underlying etiology 2patient with a nonhealing wound to the left posterior ankle area with a tendo calcaneum exposed which seem to be necrotic patient has been evaluated by vascular surgery coming out patient workup 3patient to continue with empiric vancomycin while waiting for the work-up to be completed. Time with Patient: Less than 30
[2022-01-15 05:57] VITALS: TEMP 98.5
[2022-01-15] MEDS: HEPARIN SODIUM,PORCINE/PF 5,000 UNIT/0.5 ML SYRINGE SQ SCH ×3 (06:01→15:51)
[2022-01-15 06:50] LABS: African American GFR (CKD) >90 (>60 ml/min/1.73 sqM); Non-African American GFR(CKD) 84 (>60 ml/min/1.73 sqM)
[2022-01-15] MEDS: VANCOMYCIN 1,250 MG in SODIUM CHLORIDE 0.9% 250 ML IVPB SCH (08:39)
--- NOTE | 2022-01-15 11:28 | P.PN ---
Subjective Progress Note Date: 01/15/22 Principal diagnosis: Left lower extremity nonhealing wound The patient seen and examined today as a follow-up. He is sitting up in bed. No acute changes through the night. Yesterday he underwent arterial ultrasound of the lower extremities with findings of PRESTON on the right 0.[address] angiogram abdomen and pelvis with runoff showed arthrosclerotic plaque. Objective - Vital Signs Vital signs: Vital Signs Temp 98.5 F 01/15/22 05:00 Pulse 87 01/15/22 05:00 Resp 16 01/15/22 05:00 BP 124/57 01/15/22 05:00 Pulse Ox 98 01/15/22 05:00 Intake & Output 01/14/22 01/15/22 01/15/22 18:59 06:59 18:59 Intake Total 1280 590 Balance 1280 590 Intake: Intake, IV Titration 1280 Amount Sodium Chloride 0.9% 1, 1030 000 ml @ 130 mls/hr IV . Q7H42M [facility] Rx#:[id number] Vancomycin 1,250 mg In 250 Sodium Chloride 0.9% 250 ml @ 125 mls/hr IVPB Q12H [facility] Rx#:[id number] Oral 590 Other: Voiding Method Toilet Toilet # Voids 1 - Exam General appearance: The patient is alert, oriented, appears in no acute distress. HET: Head is normocephalic and atraumatic. Pupils are equal and reactive. Neck: Supple without lymphadenopathy. Trachea midline. No audible carotid bruit. Heart: S1 S2. Regular rate and rhythm. Lungs: Clear to auscultation bilaterally. Abdomen: Soft, nontender, nondistended. Skin: Pruritic rash on bilateral upper and lower extremities and abdomen. Upper and lower extremities with leathery, dry, flaky skin. Extremities: Bilateral lower extremities with scaly A skin that is flaking. He has palpable bilateral femoral and popliteal pulses. Good capillary refill. Left lower extremity wound over the Achilles with eschar and tendon exposure. Bilateral posterior tibialis and dorsalis pedis Doppler signals. Neurological: No focal deficits. Strength and sensation are grossly intact. - Labs CBC & Chem 7: 01/14/22 07:03 01/15/22 05:27 Labs: Abnormal Lab Results - Last 24 Hours (Table) 01/14/22 Range/Units 07:03 ESR 38 H (0-20) mm/Hr Assessment and Plan Assessment: 1. Left lower extremity nonhealing nonhealing wound 2. Chronic Arthrosclerotic disease 3. Pruritic rash Plan: CT angiogram abdomen aorta with runoff shows chronic arterial arthrosclerotic calcifications, arterial ultrasound right PRESTON 0.93 left 0.80. Findings are consistent with chronic arterial arthrosclerotic disease. No indications for any acute intervention. Continue with local wound care and follow-up with wound care clinic. Patient recommended to follow-up with vascular surgery and to 4 weeks. Thank you for this consultation, the patient is cleared from vascular surgery for discharge. The impression and plan of care has been dictated as directed. Dr. Reis I performed a history and examination of this patient, discussed the same with the dictator. I agree with the dictator's note ,documented as a scribe. Any additional findings or plans will be noted.
[2022-01-15 12:24] LABS: APTT 70 Sec(s) (<43); APTT 1:1 Mix 48 Sec(s) (<43); DRVVT 1:1 Mix 42 Sec(s) (<44); Dilute Russell Viper Venom 47 Sec(s) (<44); Hexagonal Phase Neutralization Positive (Negative)
[2022-01-15 13:44] VITALS: BP 106/63
[2022-01-15 13:54] LABS: C-ANCA <1:20 Titer (<1:20)
[2022-01-15] MEDS: COLLAGENASE 250 UNIT/GM OINTMENT 30 GM TUBE TOPICAL SCH (15:47)
[2022-01-15 16:05] VITALS: PULSE 111
--- NOTE | 2022-01-15 16:06 | P.DS ---
Providers Date of admission: 01/12/22 19:53 Expected date of discharge: 01/15/22 Attending physician: Yumiko Lam MD Consults: 01/12/22 19:53 Consult Physician Urgent Consulting Provider: Colin Eric Consult Reason/Comments: b/l le cellulitis, left calf open wound Do you want consulting provider notified?: Yes 01/13/22 03:29 Consult Physician Urgent Consulting Provider: Dionna Jang Consult Reason/Comments: Diffuse severe psoriasis Do you want consulting provider notified?: Yes 01/13/22 16:30 Consult Physician Routine Consulting Provider: Monae Camarillo Consult Reason/Comments: Necrotic ulcer with tendon involvement of LLE, and need for skin biopsy Do you want consulting provider notified?: Yes 01/13/22 16:31 Consult Physician Routine Consulting Provider: Janeen Sevilla Consult Reason/Comments: Unclear severe Pruritic rash throughout body, silver scaly lesions Do you want consulting provider notified?: Yes Primary care physician: Stated None Hospital Course: 76-year-old male with no known PMH, who has not seen a physician for 20 years presents to the emergency room with complaints of diffuse rash. The patient reports that she has gradually developed this rash over the past several years, which is exquisitely pruritic. He reports that the rash has now extended to his entire body and he also has developed an ulcer on the back of his left leg. Reports developing weeping sores throughout with small amounts of blood. The patient does not take any medications. Denies experiencing chest discomfort, shortness of breath, fever, chills, cough. Denies nausea, vomiting, abdominal pain, diarrhea. Physical examination revealed foul-smelling left heel ulcer with purulent base. In the ER he had a left ankle x-ray that revealed osteopenia with multiple soft tissue abnormalities noted without obvious signs of osteomyelitis. Laboratory evaluation was remarkable for leukocytosis of 14.7, MCV 102, lactic acid 1.4. Patient was admitted, he was initially started on broad-spectrum antibiotics with Unasyn and vancomycin. He was seen by infectious disease who continued him on only vancomycin. She was seen by rheumatology who advised outpatient dermatology evaluation for urgent skin biopsy. No acute rheumatological disorder was diagnosed. Patient was also seen by vascular surgery who did not advise any surgical debridement for the left heel ulcer. CT angiogram was bilateral lower extremities run off was done and that only showed chronic vascular disease. No acute thrombosis was found. Vascular surgery recommended following up in the clinic. I saw this patient today, he continues to itch from the diffuse rash. I'm to start him on high-dose prednisone upon discharge to try to relieve the acute inflammatory component of this rash until a final diagnosis is established. ID advised discharging him on doxycycline for one week. Follow-up appointments was a primary care physician, dermatology, wound care, vascular surgery was set up. He'll be discharged home in stable condition. Time for discharge 35 minutes. Patient Condition at Discharge: Stable Plan - Discharge Summary New Discharge Prescriptions: New Collagenase [Santyl Ointment] 1 applic TOPICAL DAILY 30 Days #45 gm predniSONE 50 mg PO DAILY 10 Days #10 tab Doxycycline [Vibramycin] 100 mg PO BID 7 Days #14 capsule Menthol-Zinc Oxide Oint [Calmoseptine Ointment] 1 applic TOPICAL BID PRN 30 Days #45 gm PRN Reason: Skin Irritation hydrOXYzine HCL [Atarax] 25 mg PO TID PRN 30 Days #60 tab PRN Reason: Itching Discharge Medication List Collagenase [Santyl Ointment] 1 applic TOPICAL DAILY 30 Days #45 gm 01/15/22 [Rx] Doxycycline [Vibramycin] 100 mg PO BID 7 Days #14 capsule 01/15/22 [Rx] Menthol-Zinc Oxide Oint [Calmoseptine Ointment] 1 applic TOPICAL BID PRN 30 Days #45 gm 01/15/22 [Rx] hydrOXYzine HCL [Atarax] 25 mg PO TID PRN 30 Days #60 tab 01/15/22 [Rx] predniSONE 50 mg PO DAILY 10 Days #10 tab 01/15/22 [Rx] Follow up Appointment(s)/Referral(s): Janeen Sevilla MD [STAFF PHYSICIAN] - 1 Week Thomas Reis DO [Doctor of Osteopathic Medicine] - 2 Weeks [facility], [NON-STAFF] - 1 Week [facility]fusion [NON-STAFF] - As Needed (Antoinette [facility] (P: [phone]), contacted and informed that patient is covered at 100% in-home, office, teach and train. ) [facility] [NON-STAFF] - 1 Week (Patient to follow-up in wound center after discharge per Claudette Vogt. )
== END 2022-01-15 18:25 | disposition home or self-care (01) | DRG 872 ==
LOC: EC 15:06 → 5NMEDONC 19:53
PROVIDERS: ADMIT Internal Medicine; ATTEND Internal Medicine
DX: A41.9 Sepsis, unspecified organism (principal); L03.116 Cellulitis of left lower limb; L03.115 Cellulitis of right lower limb; L97.429 Non-pressure chronic ulcer of left heel and midfoot with unspecified severity; L97.923 Non-pressure chronic ulcer of unspecified part of left lower leg with necrosis of muscle; I70.262 Atherosclerosis of native arteries of extremities with gangrene, left leg; L97.828 Non-pressure chronic ulcer of other part of left lower leg with other specified severity; L29.9 Pruritus, unspecified; L40.9 Psoriasis, unspecified; L98.429 Non-pressure chronic ulcer of back with unspecified severity; M72.0 Palmar fascial fibromatosis [Dupuytren]; M85.80 Other specified disorders of bone density and structure, unspecified site; Z82.49 Family history of ischemic heart disease and other diseases of the circulatory system; Z87.891 Personal history of nicotine dependence; Z20.822 Contact with and (suspected) exposure to COVID-19
CPT/HCPCS: 75635; 80053; 80202; 82565; 83605; 85025; 85598; 85613; 85652; 85730; 85732; 86038; 86140; 86255; 87040; 93923; 96365; 99285

== ENCOUNTER → 2022-03-24 | Outpatient (CLI) | payer MEDICARE ==
[2022-03-24 19:40] LABS: Basophils # (A) 0.18 X 10*3/uL (0.00-0.10); Basophils % (A) 1.6 %; Eosinophils # (A) 0.61 X 10*3/uL (0.04-0.35); Eosinophils % (A) 5.3 %; HCT 38.9 % (39.6-50.0); HGB 12.2 g/dL (13.0-17.0); Immature Grans, Automated 0.3 %; Lymphocytes # (A) 2.32 X 10*3/uL (0.90-5.00); Lymphocytes % (A) 20.2 %; MCH 30.7 pg (27.0-32.0); MCHC 31.4 g/dL (32.0-37.0); MCV 97.7 fL (80.0-97.0); Mean Platelet Volume 9.7 fL (9.5-12.2); Monocytes # (A) 1.02 X 10*3/uL (0.20-1.00); Monocytes % (A) 8.9 %; NRBC Per 100 WBC 0 /100 WBCS (0.0-0.0); Neutrophils # (A) 7.34 X 10*3/uL (1.80-7.70); Neutrophils % (A) 63.7 %; Platelet Count 399 X 10*3/uL (140-440); RBC 3.98 X 10*6/uL (4.40-5.60); RDW 13.8 % (11.5-14.5); WBC 11.51 X 10*3/uL (4.50-10.00)
[2022-03-24 20:55] LABS: Chol/HDL Ratio 4.51 Ratio; LDL Cholesterol,Calculated 176.4 mg/dL (0.0-131.0); VLDL Calculation 18.94 mg/dL (5.00-40.00)
[2022-03-24 20:56] LABS: % Iron Saturation 30.27 (15.00-50.00); ALT 11 U/L (10-49); AST 20 U/L (14-35); African American GFR (CKD) 94.8 (60.0-200.0); Albumin 4.2 g/dL (3.8-4.9); Albumin/Globulin Ratio 1.14 (1.60-3.17); Alkaline Phosphatase 92 U/L (41-126); BUN/Creat Ratio 14.46 Ratio (12.00-20.00); Blood Urea Nitrogen 12.9 mg/dL (9.0-27.0); Calcium 10.3 mg/dL (8.7-10.3); Carbon Dioxide 22.3 mmol/L (20.0-27.5); Chloride 103 mmol/L (96-109); Globulin 3.6 g/dL (1.6-3.3); Glucose 105 mg/dL (70-110); Iron 91 ug/dL (65-175); Non-African American GFR(CKD) 81.8 (60.0-200.0); Sodium 138 mmol/L (135-145); Total Iron Binding Capacity 301 ug/dL (228-460); Total Protein 7.8 g/dL (6.2-8.2)
== END | disposition home or self-care (01) ==
LOC: LABWHC1 14:31
PROVIDERS: ATTEND Nurse Practitioner Family
DX: Z12.5 Encounter for screening for malignant neoplasm of prostate (principal); I73.9 Peripheral vascular disease, unspecified; L29.9 Pruritus, unspecified; L20.84 Intrinsic (allergic) eczema
CPT/HCPCS: 80061; 80053; 84443; 82607; 82728; 82140; 82746; 83540; 83550; 85025; 36415; G0103; 84439

== ENCOUNTER → 2022-08-25 | Outpatient (CLI) | payer MEDICARE ==
[2022-08-25 23:41] LABS: Basophils # (A) 0.08 X 10*3/uL (0.00-0.10); Eosinophils # (A) 0.25 X 10*3/uL (0.04-0.35); HCT 41.7 % (39.6-50.0); HGB 13.7 g/dL (13.0-17.0); Immature Grans, Automated 0.5 %; Lymphocytes # (A) 1.81 X 10*3/uL (0.90-5.00); MCH 33.7 pg (27.0-32.0); MCHC 32.9 g/dL (32.0-37.0); MCV 102.7 fL (80.0-97.0); Mean Platelet Volume 9.5 fL (9.5-12.2); Monocytes # (A) 0.73 X 10*3/uL (0.20-1.00); Monocytes % (A) 8.9 %; NRBC Per 100 WBC 0 /100 WBCS (0.0-0.0); Neutrophils # (A) 5.32 X 10*3/uL (1.80-7.70); Neutrophils % (A) 64.6 %; Platelet Count 277 X 10*3/uL (140-440); RBC 4.06 X 10*6/uL (4.40-5.60); RDW 12.3 % (11.5-14.5); WBC 8.23 X 10*3/uL (4.50-10.00)
[2022-08-25 23:50] LABS: ALT 13 U/L (10-49); AST 18 U/L (14-35); African American GFR (CKD) 93.8 (60.0-200.0); Albumin 4.6 g/dL (3.8-4.9); Albumin/Globulin Ratio 1.77 (1.60-3.17); Alkaline Phosphatase 71 U/L (41-126); Blood Urea Nitrogen 13.5 mg/dL (9.0-27.0); Calcium 10.1 mg/dL (8.7-10.3); Carbon Dioxide 25.7 mmol/L (20.0-27.5); Chloride 103 mmol/L (96-109); Chol/HDL Ratio 4.01 Ratio; Globulin 2.6 g/dL (1.6-3.3); Glucose 91 mg/dL (70-110); LDL Cholesterol,Calculated 149.8 mg/dL (0.0-131.0); Non-African American GFR(CKD) 80.9 (60.0-200.0); Potassium 4.6 mmol/L (3.5-5.5); Sodium 140 mmol/L (135-145); Total Protein 7.2 g/dL (6.2-8.2); VLDL Calculation 18.42 mg/dL (5.00-40.00)
== END | disposition home or self-care (01) ==
LOC: LABWHC1 14:46
PROVIDERS: ATTEND Internal Medicine
DX: E78.5 Hyperlipidemia, unspecified (principal)
CPT/HCPCS: 36415; 80053; 80061; 84443; 85025

== ENCOUNTER → 2023-08-16 | Outpatient (CLI) | payer MEDICARE ==
--- NOTE | 2023-08-16 12:26 | XR ---
EXAMINATION TYPE: XR shoulder complete LT DATE OF EXAM: 08/16/2023 COMPARISON: NONE HISTORY: Pain TECHNIQUE: Three views are submitted. FINDINGS: The osseous structures are intact. There is no acute fracture or dislocation. Hypertrophic AC joint arthropathy. Mild osteopenia. Mild glenohumeral joint narrowing. IMPRESSION: 1. 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
[2023-08-16 18:25] LABS: Basophils # (A) 0.07 X 10*3/uL (0.00-0.10); Eosinophils # (A) 0.14 X 10*3/uL (0.04-0.35); HCT 45.8 % (39.6-50.0); HGB 14.9 g/dL (13.0-17.0); Lymphocytes # (A) 1.79 X 10*3/uL (0.90-5.00); Lymphocytes % (A) 25.4 %; MCH 32.5 pg (27.0-32.0); MCHC 32.5 g/dL (32.0-37.0); Mean Platelet Volume 10.2 FL (9.5-12.2); Monocytes # (A) 0.63 X 10*3/uL (0.20-1.00); Monocytes % (A) 8.9 %; NRBC Per 100 WBC 0 X 10*3/uL (0.00-0.01); Neutrophils # (A) 4.38 X 10*3/uL (1.80-7.70); Neutrophils % (A) 62.3 %; Platelet Count 238 X 10*3/uL (140-440); RBC 4.58 X 10*6/uL (4.40-5.60); RDW 12.9 % (11.5-14.5); WBC 7.04 X 10*3/uL (4.50-10.00)
[2023-08-16 18:36] LABS: ALT 24 U/L (10-49); AST 27 U/L (14-35); Albumin 4.7 g/dL (3.8-4.9); Albumin/Globulin Ratio 1.74 Ratio (1.60-3.17); Alkaline Phosphatase 96 U/L (41-126); Blood Urea Nitrogen 14.4 mg/dL (9.0-27.0); Calcium 9.9 mg/dL (8.7-10.3); Chloride 104 mmol/L (96-109); Chol/HDL Ratio 3.01 Ratio; Globulin 2.7 g/dL (1.6-3.3); Glucose 105 mg/dL (70-110); Potassium 5.1 mmol/L (3.5-5.5); Sodium 140 mmol/L (135-145); Total Bilirubin 0.5 mg/dL (0.3-1.2); Total Protein 7.4 g/dL (6.2-8.2)
== END | disposition home or self-care (01) ==
LOC: LABWHC1 11:12
PROVIDERS: ATTEND Internal Medicine
DX: I10 Essential (primary) hypertension (principal); E03.9 Hypothyroidism, unspecified; M25.512 Pain in left shoulder; M19.012 Primary osteoarthritis, left shoulder
CPT/HCPCS: 36415; 80053; 80061; 84439; 84443; 85025

== ENCOUNTER 2024-08-10 13:49 | Emergency (ER) | payer MEDICARE ==
[2024-08-10] MEDS: OXYMETAZOLINE 0.05% NASL SPRAY 1 SPRAY BOTTLE NASAL STA (15:06)
--- NOTE | 2024-08-10 15:16 | ED ---
ENT HPI - General Chief complaint: ENT Stated complaint: Nose bleeds Time Seen by Provider: 08/10/24 14:00 Source: patient, RN notes reviewed Mode of arrival: ambulatory Limitations: no limitations - History of Present Illness Initial comments: This is an 79-year-old male presenting to the emergency department chief complaint of epistaxis. Patient states that yesterday he had a brief nosebleed believed to be from his left naris that was controlled after approximately 15 minutes of pressure. States that today at around 10:30 AM this morning after he was drinking his coffee his nose started to bleed. Patient packed his nose with gauze and believes this may have helped stop some of the bleeding. He denies current blood thinner use. He denies dizziness, lightheadedness, blurry or double vision. Denies history of blood clotting disorders for himself or in his family. Denies easy bruising or gingival bleeding. - Related Data Previous Rx's Medication Instructions Recorded Collagenase [Santyl Ointment] 1 applic TOPICAL DAILY 30 Days #45 01/15/22 gm Doxycycline [Vibramycin] 100 mg PO BID 7 Days #14 capsule 01/15/22 Menthol-Zinc Oxide Oint 1 applic TOPICAL BID PRN 30 Days 01/15/22 [Calmoseptine Ointment] #45 gm hydrOXYzine HCL [Atarax] 25 mg PO TID PRN 30 Days #60 tab 01/15/22 predniSONE 50 mg PO DAILY 10 Days #10 tab 01/15/22 Allergies Allergy/AdvReac Type Severity Reaction Status Date / Time No Known Allergies Allergy Verified 08/10/24 14:02 Review of Systems ROS Statement: Those systems with pertinent positive or pertinent negative responses have been documented in the HPI. ROS Other: All systems not noted in ROS Statement are negative. Past Medical History Past Medical History: Hyperlipidemia Additional Past Medical History / Comment(s): psoriasis History of Any Multi-Drug Resistant Organisms: None Reported Past Surgical History: No Surgical Hx Reported Past Anesthesia/Blood Transfusion Reactions: No Reported Reaction Past Psychological History: No Psychological Hx Reported Smoking Status: Former smoker Past Alcohol Use History: Daily Past Drug Use History: None Reported - Past Family History Mother Family Medical History: Hypertension General Exam Limitations: no limitations General appearance: alert, in no apparent distress Eye exam: Present: normal appearance, PERRL, EOMI. Absent: scleral icterus, conjunctival injection, periorbital swelling ENT exam: Present: normal exam, mucous membranes moist Neck exam: Present: normal inspection. Absent: tenderness, meningismus, lymphadenopathy Respiratory exam: Present: normal lung sounds bilaterally. Absent: respiratory distress, wheezes, rales, rhonchi, stridor Cardiovascular Exam: Present: regular rate, normal rhythm, normal heart sounds. Absent: systolic murmur, diastolic murmur, rubs, gallop, clicks GI/Abdominal exam: Present: soft, normal bowel sounds. Absent: distended, tenderness, guarding, rebound, rigid Extremities exam: Present: normal inspection, full ROM, normal capillary refill. Absent: tenderness, pedal edema, joint swelling, calf tenderness Neurological exam: Present: alert, oriented X3, CN II-XII intact Course Vital Signs 08/10/24 08/10/24 08/10/24 14:03 15:02 15:55 Temperature 97.5 F L 98.7 F Pulse Rate 88 95 88 Respiratory 18 17 18 Rate Blood Pressure 191/108 165/84 154/80 O2 Sat by Pulse 96 96 96 Oximetry Medical Decision Making - Medical Decision Making Was pt. sent in by a medical professional or institution (, PA, SENIOR BUSINESS MANAGER, urgent care, hospital, or [place] [facility] care facility...) When possible be specific @ -No Did you speak to anyone other than the patient for history (EMS, parent, family, police, friend...)? What history was obtained from this source @ -No Did you review nursing and triage notes (agree or disagree)? Why? @ -I reviewed and agree with nursing and triage notes Were old charts reviewed (outside hosp., previous admission, EMS record, old EK G, old radiological studies, urgent care reports/EKG's, [place] health care facility records)? Report findings @ -No old charts were reviewed Differential Diagnosis (chest pain, altered mental status, abdominal pain women, abdominal pain men, vaginal bleeding, weakness, fever, dyspnea, syncope, headache, dizziness, GI bleed, back pain, seizure, CVA, palpatations, mental health, musculoskeletal)? @ -Epistaxis, intranasal injury, intranasal trauma, this list is not all inclusive EKG interpreted by me (3pts min.). @ -none X-rays interpreted by me (1pt min.). @ -None done CT interpreted by me (1pt min.). @ -None done U/S interpreted by me (1pt. min.). @ -None done What testing was considered but not performed or refused? (CT, X-rays, U/S, labs)? Why? @ -None What meds were considered but not given or refused? Why? @ -None Did you discuss the management of the patient with other professionals (professionals i.e. Dr., PA, SENIOR BUSINESS MANAGER, lab, RT, psych nurse, health social work professor, certified pharmacist assistant, teacher, guest services officer, correctional counselor/case manager)? Give summary @ -No Was smoking cessation discussed for >3mins.? @ -No Was critical care preformed (if so, how long)? @ -No Were there social determinants of health that impacted care today? How? (Homelessness, low income, unemployed, alcoholism, drug addiction, transportation, low edu. Level, literacy, decrease access to med. care, penitentiary, rehab)? @ -No Was there de-escalation of care discussed even if they declined (Discuss DNR or withdrawal of care, Hospice)? DNR status @ -No What co-morbidities impacted this encounter? (DM, HTN, Smoking, COPD, CAD, Cancer, CVA, ARF, Chemo, Hep., AIDS, mental health diagnosis, sleep apnea, morbid obesity)? @ -None Was patient admitted / discharged? Hospital course, mention meds given and route, prescriptions, significant lab abnormalities, going to OR and other pertinent info. @ -Discharge. 79-year-old male with epistaxis. Patient is noted to have nasal packing that he completed at home. Removal of nasal packing reveals passage of a blood clot out of the left nares. Patient noted to be hypertensive on arrival. After removal of packing patient was monitored with no active bleeding return. Recheck of patient's blood pressure still mildly hypertensive however is greatly resolved despite medication administration. Patient provided with Afrin and discharged with this medication strict use strictly only as needed every 12 hours and is provided with nasal clamps as well. Recommend the patient follow-up outpatient primary care provider for further evaluation. Discussed with Dr. Santiago Undiagnosed new problem with uncertain prognosis? @ -No Drug Therapy requiring intensive monitoring for toxicity (Heparin, Nitro, Insulin, Cardizem)? @ -No Were any procedures done? @ -No Diagnosis/symptom? @ -epistaxis, HTN Acute, or Chronic, or Acute on Chronic? @ -Acute Uncomplicated (without systemic symptoms) or Complicated (systemic symptoms)? @ -uncomplicated Side effects of treatment? @ -No Exacerbation, Progression, or Severe Exacerbation? @ -No Poses a threat to life or bodily function? How? (Chest pain, [place], [place], pneumonia, PE, COPD, DKA, ARF, appy, cholecystitis, CVA, Diverticulitis, Homicidal, Suicidal, threat to staff... and all critical care pts) @ -No Disposition Clinical Impression: Hypertension, Epistaxis not due to trauma Disposition: HOME SELF-CARE Condition: Good Instructions (If sedation given, give patient instructions): Nosebleed (ED) Additional Instructions: Please return to the Emergency Department if symptoms worsen or any other concerns. Is patient prescribed a controlled substance at d/c from ED?: No Referrals: Willy Herrera DO [Primary Care Provider] - 1-2 days Time of Disposition: 15:16
[2024-08-10 15:57] VITALS: BP 154/80; PULSE 88; RESP 18; TEMP 98.7
== END 2024-08-10 15:56 | disposition home or self-care (01) ==
LOC: EC 13:49
DX: R04.0 Epistaxis (principal); I10 Essential (primary) hypertension; Z87.891 Personal history of nicotine dependence
CPT/HCPCS: 99283